=== PATIENT | male | born 1990 | race Caucasian/White ===

== ENCOUNTER 2017-05-25 23:38 | Emergency (ER) | payer OTHER ==
[~2017-05-25] VITALS: Ht 182.9 cm; Wt 66.1 kg
[2017-05-26] MEDS ORDERED: NORCO 5/3251 TABLET PO (02:58)
[2017-05-26 03:31] VITALS: BP 128/68
== END 2017-05-26 03:32 | disposition home or self-care (01) ==
LOC: EME 23:38
DX: M26.602 Left temporomandibular joint disorder, unspecified (principal); M54.81 Occipital neuralgia
CPT/HCPCS: 70486; 99281; 99284